=== PATIENT | female | born 1965 | race Native Hawaiian/Other Pacific Islander ===

== ENCOUNTER 2016-07-16 19:06 | Emergency (ER) | payer OTHER ==
[2016-07-16 19:06] VITALS: BMI 23.3
[2016-07-16 19:31] VITALS: BP 131/81; PULSE 86; RESP 20; TEMP 97.6; O2SAT 100
[2016-07-16] MEDS ORDERED: Tetanus/Diphtheria Toxoids 0.5 ml Syringe IM ONE (20:24)
--- NOTE | 2016-07-16 21:09 | C.PDOC ---
History Of Present Illness 51 y/o female presents to the ED with complaints of injury to finger. Pt was using a sewing machine when the needle went through her left middle fingernail. The needle broke, patient has both pieces of the needle with her in ED which appear intact. Pt concerned for foreign body retention. Pt was initially seen by PMD, advised to go to ED for further evaluation and tetanus booster. Denies weakness, numbness, or any other complaints. Time Seen by Provider: 07/16/16 19:56 Chief Complaint (Nursing): Abnormal Skin Integrity History Per: Patient History/Exam Limitations: no limitations Onset/Duration Of Symptoms: Mins Current Symptoms Are (Timing): Still Present Severity: Mild Recent travel outside of the [place]: No Past Medical History Reviewed: Historical Data, Nursing Documentation, Vital Signs Vital Signs: Last Vital Signs Temp 97.6 F 07/16/16 19:28 Pulse 86 07/16/16 19:28 Resp 20 07/16/16 19:28 BP 131/81 07/16/16 19:28 Pulse Ox 100 07/16/16 21:31 Family History: States: Unknown Family Hx - Social History Hx Alcohol Use: No Hx Substance Use: No - Immunization History Hx Tetanus Toxoid Vaccination: No Hx Influenza Vaccination: No Hx Pneumococcal Vaccination: No Review Of Systems Constitutional: Negative for: Fever Musculoskeletal: Positive for: Other (injury to left middle finger) Neurological: Negative for: Weakness, Numbness Physical Exam - Physical Exam Appears: Non-toxic, No Acute Distress Skin: Warm, Dry Head: Atraumatic, Normacephalic Eye(s): bilateral: Normal Inspection, PERRL Extremity: Normal ROM, Tenderness (minimal on plapation of distal aspect of left 3rd finger), Capillary Refill (<2 seconds), Other (puncture wound to distal aspect left 3rd nail bed through the palmar aspect; no foreign body palpated, no active bleeding) Neurological/Psych: Oriented x3, Normal Speech, Normal Motor, Normal Sensation ED Course And Treatment O2 Sat by Pulse Oximetry: 100 (room air) Pulse Ox Interpretation: Normal Progress Note: XR left hand negative for fracture or metallic foreign body. Ordered tetanus and motrin. 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 - Scribe Statement The provider has reviewed the documentation as recorded by the Scribalmaz Strauss All medical record entries made by the Bill were at my direction and personally dictated by me. I have reviewed the chart and agree that the record accurately reflects my personal performance of the history, physical exam, medical decision making, and the department course for this patient. I have also personally directed, reviewed, and agree with the discharge instructions and disposition.
--- NOTE | 2016-07-17 10:08 | RAD ---
PROCEDURE: Left middle finger radiographs. HISTORY: possible foreign body- piece of sewing needle COMPARISON: None. TECHNIQUE: AP radiograph of the left hand, as well as spot oblique and lateral images of left middle finger were obtained. FINDINGS: LEFT MIDDLE FINGER: Left middle finger normal, without fracture of focal lesion. Deformity of the 5th metacarpal consistent with old healed trauma JOINTS: Normal. SOFT TISSUES: Normal. OTHER FINDINGS: No radiopaque foreign body noted IMPRESSION: No radiopaque foreign body noted. No osseous disruption/fracture or dislocation Deformity of the 5th metacarpal consistent with old healed trauma
== END 2016-07-16 21:18 | disposition home or self-care (01) ==
LOC: C.ER 19:06
DX: S61.233A Puncture wound without foreign body of left middle finger without damage to nail, initial encounter (principal); Y93.D2 Activity, sewing; Z23 Encounter for immunization